=== PATIENT | male | born 1955 | race Hispanic/Latino ===

== ENCOUNTER → 2020-03-13 | Outpatient (CLI) | payer OTHER | LOC: VACCPMC 19:30 | DX: Z23 Encounter for immunization (principal); Z20.822 Contact with and (suspected) exposure to COVID-19 ==

== ENCOUNTER → 2020-04-15 | Outpatient (CLI) | payer OTHER ==
[~2020-04-15] MED LIST: COVID-19 VACC, MRNA(MODERNA)/PF 100 MCG/0.5 ML VIAL IM ONE
== END | DRG 951 ==
LOC: VACCPMC 08:04
DX: Z23 Encounter for immunization (principal); Z20.822 Contact with and (suspected) exposure to COVID-19
CPT/HCPCS: 0012A; 91301